=== PATIENT | female | born 1985 | race African-American/Black ===

== ENCOUNTER 2024-04-19 08:25 | Inpatient (IN) | payer BC ==
[2024-04-19] MEDS: LACTATED RINGERS SOLUTION 1,000 ML/1,000 ML INFUS.BAG IV SCH (08:45)
[2024-04-19 09:43] VITALS: BMI 39.6
[2024-04-19 10:02] LABS: BASO % 0.8 % (0-2.0); HEMOGLOBIN 10.8 GM/dL (10.7-15.3); LYMPH % 34.1 % (8-40); MCH 30.1 pg (25.7-33.7); MCHC 33.6 g/dl (32.0-36.0); MEAN CELL VOLUME 89.4 fl (80-96); MEAN PLT VOLUME 9.8 fl (7.5-11.1); MONO % 9.7 % (3.8-10.2); NEUT % 52.4 % (42.8-82.8); PLATELET COUNT 124 10^3/uL (134-434); RBC 3.58 M/mm3 (3.60-5.2); RDW 14.3 % (11.6-15.6); WHITE BLOOD COUNT 5.4 K/mm3 (4.0-10.0)
[2024-04-19 10:06] LABS: INR 0.87 (0.83-1.09); PROTHROMBIN TIME (PATIENT) 9.9 SEC (9.7-13.0)
[2024-04-19 10:09] LABS: ACTIVATED PTT 27.6 SECONDS (25.2-36.5)
[2024-04-19 10:21] LABS: POTASSIUM 3.7 mmol/L (3.5-5.1)
[2024-04-19 10:26] LABS: ALBUMIN 2.5 g/dl (3.4-5.0); BLOOD UREA NITROGEN 16.9 mg/dL (7-18); CALCIUM 8.9 mg/dL (8.5-10.1)
[2024-04-19 10:28] LABS: CREATININE 0.9 mg/dL (0.55-1.3); URIC ACID 6.2 mg/dL (2.6-7.2)
[2024-04-19 10:30] LABS: BILIRUBIN,TOTAL 0.2 mg/dL (0.2-1); TOT PROT 5.4 g/dl (6.4-8.2)
[2024-04-19] MEDS ORDERED: OXYTOCIN 30 UNITS in 0.9% NS 30 UNIT/500 ML INFUS.BAG IVPB ONE (11:12)
[2024-04-19] MEDS: OXYTOCIN 30 UNITS in 0.9% NS 30 UNIT/500 ML INFUS.BAG IVPB SCH (11:15)
[2024-04-19] MEDS: DEXTROSE 5%-LACTATED RINGERS 1,000 ML IV SCH (13:29)
[2024-04-19] MEDS ORDERED: ONDANSETRON 4 MG/2 ML VIAL IVPUSH PRN (14:05)
[2024-04-19] MEDS ORDERED: FENTANYL CITRATE/PF 50 MCG/ML VIAL ONE (15:59)
[2024-04-19] MEDS ORDERED: morphine SULFATE/PF 1 MG/2 ML (2cc Syringe - QUVA) ONE (15:59)
[2024-04-19] MEDS ORDERED: OXYTOCIN 10 UNITS/ML VIAL ONE (16:00)
[2024-04-19] MEDS ORDERED: ONDANSETRON 4 MG/2 ML VIAL ONE (16:00)
[2024-04-19] MEDS ORDERED: ceFAZolin SODIUM 1 GM VIAL ONE (16:00)
[2024-04-19] MEDS ORDERED: DEXAMETHASONE SOD PHOSPHATE 4 MG/1 ML VIAL ONE (16:22)
[2024-04-19] MEDS ORDERED: ACETAMINOPHEN 325 MG TABLET (FP) PO PRN (16:33)
[2024-04-19] MEDS ORDERED: LIGASURE IMPACT TP ONE (17:04)
[2024-04-19 17:18] LABS: CORD BASE EXCESS -7.1 mmol/L (0-2); CORD HCO3 21.7 mmHg (20-29); CORD PCO2 57.8 mmHg (30-78); CORD pH 7.192 (7.14-7.44)
[2024-04-19 17:20] LABS: CORD HCO3 23.3 mmHg (20-29); CORD PCO2 77.9 mmHg (30-78); CORD pH 7.094 (7.14-7.44)
[2024-04-19] MEDS ORDERED: IBUPROFEN 800 MG/8 ML IJ IVPB PRN (18:13)
[2024-04-19] MEDS ORDERED: SIMETHICONE 80 MG TAB.CHEW (FP) PO PRN (18:15)
[2024-04-19] MEDS ORDERED: ACETAMINOPHEN INJECTION 100 ML ONE (18:23)
[2024-04-19] MEDS ORDERED: OXYTOCIN 20 UNITS in 0.9% NS 20 UNIT/1,000 ML INFUS.BAG IV ONE (18:23)
[2024-04-19] MEDS: OXYTOCIN 20 UNITS in 0.9% NS 20 UNIT/1,000 ML INFUS.BAG IV SCH ×2 (18:28→19:25)
[2024-04-19] MEDS: LABETALOL HCL 5 MG/1 ML (100MG/20 ML VIAL) IVPUSH ONE (18:30)
[2024-04-19] MEDS ORDERED: LABETALOL HCL 20 MG/4 ML VIAL ONE ×2 (18:32→20:26)
[2024-04-19] MEDS: ACETAMINOPHEN 1000 MG/100 ML BAG IVPB PRN (18:35)
[2024-04-19] MEDS ORDERED: MAGNESIUM 4GM/H20 - 4 GM/100 ML IVPB IVPB ONE (18:52)
[2024-04-19] MEDS: MAGNESIUM 4GM/H20 - 4 GM/100 ML IVPB IVPB ONE (18:55)
[2024-04-19] MEDS ORDERED: MAGNESIUM SULFATE 20GM/500ML - 20 GM/500 ML INFUS.BAG ONE (19:25)
[2024-04-19] MEDS: MAGNESIUM SULFATE 20GM/500ML - 20 GM/500 ML INFUS.BAG IV SCH (19:25)
[2024-04-19] MEDS ORDERED: LABETALOL HCL 200 MG TABLET (FP) ONE ×2 (19:58→22:11)
[2024-04-19] MEDS: FAMOTIDINE 20 MG TABLET PO SCH (20:00)
[2024-04-19] MEDS: LABETALOL HCL 200 MG TABLET (FP) PO SCH (20:01)
[2024-04-19] MEDS: LABETALOL HCL 20 MG/4 ML VIAL IVPUSH ONE (20:30)
[2024-04-19] MEDS ORDERED: SENNOSIDES/DOCUSATE COMBO (SENNA PLUS) TABLET (UD) PO SCH (22:00)
[2024-04-20] MEDS: LABETALOL HCL 200 MG TABLET (FP) PO ONE (00:44)
[2024-04-20] MEDS ORDERED: OXYTOCIN 20 UNITS in 0.9% NS 20 UNIT/1,000 ML INFUS.BAG IV ONE (03:04)
[2024-04-20] MEDS ORDERED: MAGNESIUM SULFATE 20GM/500ML - 20 GM/500 ML INFUS.BAG ONE ×2 (04:36→13:41)
[2024-04-20] MEDS ORDERED: ACETAMINOPHEN INJECTION 100 ML ONE ×2 (06:13→10:04)
[2024-04-20] MEDS ORDERED: IBUPROFEN 600 MG TABLET (FP) PO PRN ×2 (06:30→18:13)
[2024-04-20 07:31] LABS: BASO % 0.3 % (0-2.0); HEMATOCRIT 30.2 % (32.4-45.2); LYMPH % 11.8 % (8-40); MCH 29.9 pg (25.7-33.7); MCHC 33.2 g/dl (32.0-36.0); MEAN PLT VOLUME 10.4 fl (7.5-11.1); MONO % 5.9 % (3.8-10.2); PLATELET COUNT 134 10^3/uL (134-434); RBC 3.36 M/mm3 (3.60-5.2); RDW 14.5 % (11.6-15.6); WHITE BLOOD COUNT 12.7 K/mm3 (4.0-10.0)
[2024-04-20 08:26] LABS: MAGNESIUM 6.1 mg/dL (1.8-2.4)
[2024-04-20] MEDS ORDERED: FERROUS SO4 325 MG TABLET (FP) ONE (09:57)
[2024-04-20] MEDS ORDERED: LABETALOL HCL 200 MG TABLET (FP) ONE (09:57)
[2024-04-20] MEDS ORDERED: PRENATAL VITAMINS W/ FOLIC ACID TABLET (FP) PO ONE (09:57)
[2024-04-20] MEDS: PRENATAL VITAMINS W/ FOLIC ACID TABLET (FP) PO SCH (09:59)
[2024-04-20] MEDS: FERROUS SO4 325 MG TABLET (FP) PO SCH (09:59)
[2024-04-20] MEDS ORDERED: PRENATAL VITAMINS W/ FOLIC ACID TABLET (FP) PO SCH (10:00)
[2024-04-20] MEDS ORDERED: ENOXAPARIN NA (PORCINE) 40 MG/0.4 ML DISP.SYRIN SQ SCH (10:00)
[2024-04-20] MEDS: OXYTOCIN 20 UNITS in 0.9% NS 20 UNIT/1,000 ML INFUS.BAG IV SCH (13:35)
[2024-04-20] MEDS: ACETAMINOPHEN 1000 MG/100 ML BAG IVPB SCH (13:36)
[2024-04-20] MEDS ORDERED: BISACODYL 10 MG SUPP.RECT RC PRN (18:15)
[2024-04-20] MEDS ORDERED: ACETAMINOPHEN 325 MG TABLET (FP) PO PRN (18:30)
[2024-04-20] MEDS: oxyCODONE HCL 5 MG TABLET PO PRN (19:36)
[2024-04-20] MEDS: SIMETHICONE 80 MG TAB.CHEW (FP) PO PRN (21:41)
[2024-04-20] MEDS: ACETAMINOPHEN 325 MG TABLET (FP) PO PRN (23:27)
[2024-04-21] MEDS: oxyCODONE HCL 5 MG TABLET PO PRN (03:31)
[2024-04-21 17:16] VITALS: RESP 18
[2024-04-21] MEDS: BISACODYL 10 MG SUPP.RECT RC PRN (18:05)
[2024-04-22 06:01] VITALS: PULSE 70
[2024-04-22 08:15] LABS: BASO % 0.4 % (0-2.0); HEMATOCRIT 28.8 % (32.4-45.2); HEMOGLOBIN 9.7 GM/dL (10.7-15.3); LYMPH % 15.3 % (8-40); MCH 30.1 pg (25.7-33.7); MCHC 33.7 g/dl (32.0-36.0); MEAN CELL VOLUME 89.4 fl (80-96); MEAN PLT VOLUME 8.9 fl (7.5-11.1); MONO % 7.2 % (3.8-10.2); NEUT % 75.1 % (42.8-82.8); PLATELET COUNT 176 10^3/uL (134-434); RBC 3.22 M/mm3 (3.60-5.2); RDW 15.5 % (11.6-15.6); WHITE BLOOD COUNT 12.2 K/mm3 (4.0-10.0)
[2024-04-22 09:04] VITALS: BP 126/81; TEMP 98.1
== END 2024-04-22 11:35 | disposition home or self-care (01) | DRG 788 ==
LOC: JLDR 08:25 → J3W 04-20 16:50
PROVIDERS: ADMIT Obstetrics & Gynecology; ATTEND Obstetrics & Gynecology
PROC: 10D00Z1 Extraction of Products of Conception, Low, Open Approach (ICD-10-PCS; principal; 2024-04-19)
PROC: 0U7C7ZZ Dilation of Cervix, Via Natural or Artificial Opening (ICD-10-PCS; 2024-04-19)
PROC: 3E0P7VZ Introduction of Hormone into Female Reproductive, Via Natural or Artificial Opening (ICD-10-PCS; 2024-04-19)
DX: O76 Abnormality in fetal heart rate and rhythm complicating labor and delivery (principal); O14.14 Severe pre-eclampsia complicating childbirth; O32.8XX0 Maternal care for other malpresentation of fetus, not applicable or unspecified; O69.1XX0 Labor and delivery complicated by cord around neck, with compression, not applicable or unspecified; Z3A.37 37 weeks gestation of pregnancy; Z37.0 Single live birth
CPT/HCPCS: 36415; 36600; 80053; 82803; 83735; 84550; 85025; 85610; 85730; 86780; 86850; 86900; 86901; 88305-TC; 88307-TC; J0131